=== PATIENT | male | born 1965 | race Caucasian/White ===

== ENCOUNTER 2017-11-12 09:19 | Day surgery (SDC) | payer BC ==
[2017-11-11 08:39] VITALS: BMI 30.7
[~2017-11-12 09:19] MED LIST: LACTATED RINGERS 1,000 ML IV SCH
[2017-11-12 10:08] VITALS: TEMP 98.2
[2017-11-12] MEDS ORDERED: LIDOCAINE 1% 20 ML VIAL (10MG/ML) FOR IV START INTRADERMA ONE (10:19)
[2017-11-12] MEDS ORDERED: PROPOFOL 10 MG/ML 20 ML VIAL IV ONE (10:36)
--- NOTE | 2017-11-12 10:37 | P.GSHP ---
History of Present Illness H&P Date: 11/12/17 Chief Complaint: Remaining colonoscopy 's is a 52-year-old male referred from Dr. Silvestre. Patient rents today for screening colonoscopy. He denies a significant GI complaints. Past Medical History Past Medical History: Osteoarthritis (OA) History of Any Multi-Drug Resistant Organisms: None Reported Additional Past Surgical History / Comment(s): Jaw Surgery Past Anesthesia/Blood Transfusion Reactions: No Reported Reaction Past Psychological History: No Psychological Hx Reported Smoking Status: Never smoker Past Alcohol Use History: Occasional Past Drug Use History: None Reported - Past Family History Father Family Medical History: No Reported History Medications and Allergies Home Medications Medication Instructions Recorded Confirmed Type Ibuprofen [Advil] 200 mg PO Q8HR PRN 11/11/17 11/12/17 History Allergies Allergy/AdvReac Type Severity Reaction Status Date / Time No Known Allergies Allergy Verified 11/12/17 10:06 Surgical - Exam Vital Signs Temp Pulse Resp BP Pulse Ox 98.2 F 73 16 143/85 98 11/12/17 10:04 11/12/17 10:04 11/12/17 10:04 11/12/17 10:04 11/12/17 10:04 - General well developed, no distress - Eyes PERRL - ENT normal pinna - Neck no masses - Respiratory normal expansion - Cardiovascular Rhythm: regular - Abdomen Abdomen: soft, non tender Assessment and Plan Assessment: We'll perform screening colonoscopy.
--- NOTE | 2017-11-12 10:48 | P.OP ---
Date of Procedure: 11/12/17 Preoperative Diagnosis: Screening colonoscopy Postoperative Diagnosis: Normal colonoscopy Procedure(s) Performed: Colonoscopy Anesthesia: MAC Surgeon: Murtaza Yancey Pathology: none sent Condition: stable Disposition: PACU Description of Procedure: PROCEDURE: The patient was placed on the endoscopy table in the lateral position. Digital rectal examination was performed which revealed no abnormalities. The prostate was symmetrical without nodules. Flexible colonoscope was then placed in the patient's anus and passed throughout the entire colon. The ileocecal valve was visualized. The cecum, ascending, transverse, descending and sigmoid colon were normal. The rectum was normal as well. There were no masses, polyps or diverticula noted in the entire colon. SUMMARY OF FINDINGS: Normal colonoscopy.
[2017-11-12 10:55] VITALS: RESP 18
[2017-11-12 11:38] VITALS: BP 127/84; PULSE 60
== END 2017-11-12 11:35 | disposition home or self-care (01) ==
LOC: ORWHC2ENDO 09:19
PROVIDERS: ATTEND Surgery
DX: Z12.11 Encounter for screening for malignant neoplasm of colon (principal); M19.90 Unspecified osteoarthritis, unspecified site
CPT/HCPCS: G0121; J2704